=== PATIENT | male | born 1970 | race African-American/Black ===

== ENCOUNTER 2018-08-06 08:33 | Day surgery (SDC) | payer OTHER ==
[~2018-08-06 08:33] MED LIST: CEFAZOLIN 1 GM/50 ML (PMX) 50 ML IVPB; SOD CHLORIDE 0.9% 1,000 ML IV
[2018-08-06] MEDS ORDERED: FENTAnyl 50 MCG/ML VIAL (10:52)
[2018-08-06] MEDS ORDERED: MIDAZOLAM 1 MG/ML 2 ML INJ (10:52)
[2018-08-06] MEDS: BUPIVACAINE 0.5%/EPI (SDV) 30 ML INJ (11:33)
[2018-08-06] MEDS ORDERED: PROPOFOL 20 ML (11:38)
[2018-08-06] MEDS ORDERED: LIDOCAINE 2% (SDV) 5 ML INJ (11:38)
[2018-08-06] MEDS ORDERED: CEFAZOLIN 1 GM INJ (11:39)
[2018-08-06] MEDS ORDERED: ONDANSETRON 4 MG INJ (11:39)
[2018-08-06] MEDS ORDERED: METOCLOPRAMIDE 10 MG INJ IV (12:30)
[2018-08-06] MEDS ORDERED: MEPERIDINE 25 MG INJ IV (12:30)
[2018-08-06] MEDS ORDERED: HYDROmorphONE 1 MG/5 ML IV SYRINGE IV ×2 (12:30)
[2018-08-06] MEDS ORDERED: DIPHENHYDRAMINE 50 MG INJ IV (12:30)
[2018-08-06] MEDS ORDERED: ONDANSETRON 4 MG INJ IV (12:30)
[2018-08-06] MEDS ORDERED: FENTAnyl 50 MCG/ML VIAL IV (12:30)
[2018-08-06] MEDS ORDERED: hydrALAzine 20 MG INJ IV (12:30)
== END 2018-08-06 14:01 | disposition home or self-care (01) ==
LOC: SDS 08:33
DX: M79.5 Residual foreign body in soft tissue (principal); I10 Essential (primary) hypertension; E78.5 Hyperlipidemia, unspecified; E11.9 Type 2 diabetes mellitus without complications
CPT/HCPCS: 27372; 73562; 82962; 88304